=== PATIENT | female | born 1980 | race Caucasian/White ===

== ENCOUNTER 2017-07-08 08:34 | Day surgery (SDC) | payer OTHER ==
[2017-07-01 13:00] VITALS: BP 123/80
[~2017-07-08] VITALS: Ht 167.6 cm; Wt 103.1 kg
[~2017-07-08 08:34] MED LIST: ALPR1TAB2 PO; BACITRACIN 50,000 UNIT ONE; BACITRACIN OINT 500U/GM, 15 GM ONE; BACL-19 PO; CALC-361 PO; EPINEPHRINE 1 MG/ML, 1ML ONE; EPINEPHRINE TOPICAL SOLN 1 MG/ML, 30ML ONE; FLUORESCEIN OPHTHALMIC 1 MG STRIP ONE; FURO-92 PO; GABA800T2 PO; HYDR30CA3 PO; LIDOCAINE-MPF 1%, 5ML ONE; MULT-516 PO; ONDA8TAB16 SL; OXYMETAZOLINE NASAL SPRAY 0.05%, 15ML ONE; PHEN37.53 PO; POTASSIUM PO; THYR60TA PO; TRAZ150T62 PO
[2017-07-08] MEDS ORDERED: LACTATED RINGERS 1,000 ML IV SCH (09:03)
[2017-07-08 09:10] VITALS: BP 123/80
[2017-07-08] MEDS ORDERED: SCOPOLAMINE PATCH, 1.5MG PATCH.TD72 TD ONE (09:30)
[2017-07-08] MEDS ORDERED: GABAPENTIN 300 MG CAPSULE PO ONE (09:30)
[2017-07-08] MEDS ORDERED: LIDOCAINE-MPF 1%, 2ML INFIL ONE (09:30)
[2017-07-08] MEDS ORDERED: OxyconTIN ER 10 MG TAB.ER PO ONE (09:30)
[2017-07-08] MEDS ORDERED: ACETAMINOPHEN 500 MG TABLET PO ONE (09:30)
[2017-07-08] MEDS ORDERED: FAMOTIDINE 20 MG TABLET PO ONE (09:30)
[2017-07-08] MEDS ORDERED: OXYcodone IR 5MG TABLET PO ONE (09:30)
[2017-07-08] MEDS ORDERED: FENTANYL PF 100 MCG/2ML ONE ×2 (10:50→12:50)
[2017-07-08] MEDS ORDERED: MIDAZOLAM 1 MG/ML, 2ML ONE (10:51)
[2017-07-08] MEDS ORDERED: CLINDAMYCIN 150 MG/ML, 6ML ONE (11:31)
[2017-07-08] MEDS ORDERED: ROCURONIUM 10 MG/ML,10ML ONE (11:34)
[2017-07-08] MEDS ORDERED: LIDOCAINE-MPF 1%, 5ML INFIL ONE ×2 (12:07)
[2017-07-08] MEDS ORDERED: SUCCINYLCHOLINE 20 MG/ML, 10ML ONE (14:10)
[2017-07-08] MEDS ORDERED: ONDANSETRON 2MG/ML, 2ML ONE (14:10)
[2017-07-08] MEDS ORDERED: DEXAMETHASONE 4 MG/ML, 1ML ONE (14:10)
[2017-07-08] MEDS ORDERED: PROPOFOL 10 MG/ML, 20ML ONE (14:10)
[2017-07-08] MEDS ORDERED: morphine SULFATE 10 MG/ML, 1ML IV PRN (15:00)
[2017-07-08] MEDS ORDERED: LABETALOL 5MG/ML, 20ML IV PRN (15:00)
[2017-07-08] MEDS ORDERED: PROMETHAZINE 25 MG/ML, 1ML IV PRN (15:00)
[2017-07-08] MEDS ORDERED: ONDANSETRON 2MG/ML, 2ML IVPush PRN (15:00)
[2017-07-08] MEDS ORDERED: ALBUTEROL/IPRATROPIUM 2.5MG/0.5MG, 3 ML NPPB PRN (15:00)
[2017-07-08] MEDS ORDERED: HYDROcodone/APAP 7.5-325MG/15ML UDC PO PRN (15:00)
[2017-07-08] MEDS ORDERED: FENTANYL PF 100 MCG/2ML IV PRN (15:00)
[2017-07-08] MEDS ORDERED: DIAZEPAM 5 MG/ML, 2ML IVPush PRN (15:00)
[2017-07-08] MEDS ORDERED: MIDAZOLAM 1 MG/ML, 2ML IV PRN (15:00)
[2017-07-08] MEDS ORDERED: METOPROLOL 1 MG/ML, 5ML IV PRN (15:00)
[2017-07-08] MEDS ORDERED: OXYcodone 5 MG/5 ML ORAL.SOL UDC PO PRN (15:00)
[2017-07-08] MEDS ORDERED: ALBUTEROL SULFATE 2.5 MG/3 ML NPPB PRN (15:00)
[2017-07-08] MEDS ORDERED: MEPERIDINE/PF 25MG/0.5ML IVPush PRN (15:00)
[2017-07-08] MEDS ORDERED: PROMETHAZINE 12.5 MG SUPP PR PRN (15:00)
[2017-07-08] MEDS ORDERED: hydrALAzine 20 MG/ML, 1ML IV PRN (15:00)
[2017-07-08] MEDS ORDERED: EPHEDRINE 50 MG/ML, 1ML IVPush PRN (15:00)
[2017-07-08] MEDS ORDERED: LEVOFLOXACIN/PMX 500MG/100ML 100 ML IV ONE (15:30)
== END 2017-07-08 18:00 ==
LOC: OUT 08:34
PROVIDERS: ATTEND Otolaryngology
DX: J34.2 Deviated nasal septum (principal); J32.0 Chronic maxillary sinusitis; J32.1 Chronic frontal sinusitis; J32.2 Chronic ethmoidal sinusitis; J32.9 Chronic sinusitis, unspecified; E03.9 Hypothyroidism, unspecified; I10 Essential (primary) hypertension; F41.9 Anxiety disorder, unspecified
CPT/HCPCS: 30520; 31240; 31255; 31256; 31276; 31287; 61782; 81025; 87015; 87070; 87075; 87102; 87116; 87205; 87206; 88304; J0171; J0330; J1100; J1956; J2250; J2405; J2704; J3010; J7120; S1090; 88311; J3490